=== PATIENT | female | born 1965 | race African-American/Black ===

== ENCOUNTER 2016-06-29 10:58 | Emergency (ER) | payer BC ==
[~2016-06-29] VITALS: Ht 165.1 cm; Wt 91.0 kg
[2016-06-29] MEDS ORDERED: SODIUM CHLORIDE 0.9% 2,000 ML IV ONE (12:31)
[2016-06-29 13:31] LABS: BASOPHILS % 0.6 % (0.0-2.0); EOSINOPHILS % 1.2 % (0.0-5.0); HEMOGLOBIN. 13.9 g/dL (12.0-16.0); MEAN CORPUSCULAR HEMOGLOBIN 31.4 pg (28.0-32.0); MEAN CORPUSCULAR HGB CONC 33.9 g/dL (31.0-37.0); MEAN CORPUSCULAR VOLUME 92.9 fL (81.0-99.0); MONOCYTES % 5.4 % (2.0-8.0); NEUTROPHILS % 68.8 % (40.0-76.0); PLATELET 239 x1000/uL (130-400); RED BLOOD CELL COUNT 4.41 mill/uL (4.2-5.4); RED CELL DISTRIBUTION WIDTH 13.3 % (11.6-14.6); WHITE BLOOD COUNT 13.7 x1000/uL (4.5-11.0)
[2016-06-29 13:40] LABS: ALBUMIN 3.3 g/dL (3.4-5.0); ANION GAP 14; CALCIUM 10.2 mg/dL (8.5-10.1); CARBON DIOXIDE 27 mEq/L (21-32); CHLORIDE 98 mEq/L (98-107); INDEX HEMOLYSI 1 (1-3); INDEX ICTERIC 1 (1-4); INDEX LIPEMIC 1 (1-3); UREA NITROGEN BLOOD 30 mg/dL (7-21)
[2016-06-29 13:45] LABS: ALANINE AMINOTRANSFERASE 22 IU/L (13-61); eGFR > 60 mL/min (>60)
[2016-06-29] MEDS ORDERED: INSULIN REGULAR (HUMULIN R) 300UNITS/3ML SUBCUT ONE ×2 (14:00→17:30)
[2016-06-29 17:47] VITALS: BP 115/68
== END 2016-06-29 20:15 | disposition home or self-care (01) ==
LOC: ER 12:33
DX: E11.65 Type 2 diabetes mellitus with hyperglycemia (principal); L97.529 Non-pressure chronic ulcer of other part of left foot with unspecified severity; F17.210 Nicotine dependence, cigarettes, uncomplicated; Z79.84 Long term (current) use of oral hypoglycemic drugs; Z91.14 Patient's other noncompliance with medication regimen; Z91.018 Allergy to other foods
CPT/HCPCS: 36415; 80053; 81025; 82962; 85025; 96360; 96372; 99284; J1815; J7030; Z7610